=== PATIENT | female | born 1970 ===

== ENCOUNTER 2025-03-07 09:12 | Outpatient (AMB) | payer BC, SELFPAY ==
--- OUTSIDE RECORDS SUMMARY | 2025-03-07 10:16 | XMS_ITS | Patient Health Record ---
Author Organization Total [facility] Address [address] [place] [address] Care Team Providers Care Grinding Wheel Facer Name Role Phone SHELDON SHAVER, LORRIE Primary Care Provider Ailin Wallis Unavailable [phone] Allergies No Known Allergies Results Component Value Reference Range Notes Urinalysis Reviewed date:01/15/2025 12:10:05 PM Interpretation: Performing Lab: Notes/Report: PH 6.0 PROTEIN TRACE GLUCOSE NEG BLOOD NEG Reason For Referral No Information Medications Medication SIG (Take, Route, Frequency, Duration) Notes Start Date End Date Status Estradiol 0.0375 MG/24HR APPLY 1 PATCH O NTO THE SKIN TWICE A WEEK; Duration: 84 Activ e Estradiol 0.0375 MG/24HR 1 patch to skin Transdermal Two times a Week; Duration: 90 days 01/15/2025 Active PreserVision AREDS A ctive Social History Tobacco Use: Social History Observation Description Date Details (start date - stop date) Never Smoker NA - NA Tobacco Use/Smoking Question Answer Notes Are you a nonsmoker Alcohol Screen (Audit-C) Question Answer Notes Did you have a drink contain ing alcohol in the past year? Yes How often did you have a dri nk containing alcohol in the past year? 2 to 4 times a month (2 points) How many drinks did you have on a typical day when you were drinking in the past year? 1 or 2 drinks (0 point) Points 2 Interpretation Negative Sexual History Question Answer Notes Had sex in the past 12 months (vaginal, oral, or anal)? Yes with Men only Prevention strategies discussed: Other Problems Problem Type SNOMED Code ICD Code Onset Dates Problem Status W/U Status Risk Notes Problem Cardiac arrhythmia (099066816) Cardiac arrhythmia, unspecified (I49.9) Active confirmed Problem Unspecified menopausal and perimenopausal disorder (N95.9) Active confirmed Problem Menopause (408241215) Menopausal and female climacteric states (N95.1) Active confirmed Problem Candidal vulvovaginitis (70339659) Candidiasis of vulva and vagina (112.1) Active confirmed Other Problem Urinary tract infectious disease (disorder) (81960336) Urinary tract infection, site not specified (599.0) Active confirmed Diag Problem Gynecological examination normal (151518544595278) Routine gynecological examination (V72.31) Active confirmed Major Vital Signs Temperature 98.2 degrees Fahrenheit 01/15/2025 Blood pressure diastolic 78 mm Hg 01/15/2025 Height 61.5 in 01/15/2025 Blood pressure systolic 124 mm Hg 01/15/2025 Weight 149 lbs 01/15/2025 BMI 27.69 kg/m2 01/15/2025 Encounters Encounter Location Date Provider Diagnosis [facility] [address] [address] 01/15/2025 Ailin Stone Encounter for gynecological examination (general) (routine) without abnormal findings Z01.419 ; Encounter for screening mammogram for malignant neoplasm of breast Z12.31 ; Hormone replacement therapy Z79.890 and Dense breasts, unspecified R92.30 [facility] [place] [address] [employer] [address] [address] 03/21/2024 Ailin Stone Assessments Encounter Date Diagnosis (ICD Code) Assessment Notes Treatment Notes Treatment Clinical Notes Section Notes 01/15/2025 Encounter for gynecological examination (general) (routine) without abnormal findings (ICD-10 - Z01.419) NO MORE PAP TESTS. 01/15/2025 Encounter for screening mammogram for malignant neoplasm of breast (ICD-10 - Z12.31) REGULAR MAMMOGRAMS AND SBE'S WERE RECOMMENDED. 01/15/2025 Hormone replacement therapy (ICD-10 - Z79.890) DISCUSSED BENEFITS AND RISKS OF ERT. SHE HAS NO CONTRAINDICATIONS AND ACCEPTS RISKS. RX FOR ESTRADIOL PATCH 0.0375 MG WILL BE SENT. 01/15/2025 Dense breasts, unspecified (ICD-10 - R92.30) DISCUSSED DENSE BREASTS ON MAMMOGRAM AND ITS IMPLICATIONS. 3D MAMMOGRAMS WERE RECOMMENDED. Plan Of Treatment Pending Test Test Name Order Date MAMMOGRAM, SCREENING 05/12/2015 Urinalysis 07/07/2020 Urinalysis 07/30/2021 MM Digital Mammo Screening 07/30/2021 MM Digital Mammo Screening 11/11/2022 MM Digital Mammo Screening 11/17/2023 MM Digital Mammo Screening 01/15/2025 Next Appt Details Provider Name:Ailin Lazcano edi, 01/27/2026 08:20:00 AM, [address], [address], [place], [address], Insurance Providers Payer Name Payer Address Payer Phone Subscriber Number Group Number Insured Name Patient Relationship to Insured Coverage Start Date Coverage End Date [employer] [address] [place] [address] [id number] NEEL KOWALSKI Self - patient is the insured Medical (General) History Medical History History ICD Code Inconclusive mammogram R92.2 Leiomyoma of uterus, unspecified D25.9 Other fatigue R53.83 Unspecified menopausal and perimenopausa l disorder N95.9 Mammographic heterogeneous density, bila teral breasts R92.333 Surgical History Surgery Date(Month/Year) Right Kidney Donation 2008 Biopsy on Tounge 2014 [place] Teeth Colonoscopy 2011 Hysterectomy 2017 Hospitalization History Reason Date(Month/Year) See Surgical Hx
== END 2025-03-07 09:25 | disposition home or self-care (01) ==
LOC: HO.HMGAL 09:12
PROVIDERS: PCP Internal Medicine; Visit Provider Registered Nurse Emergency
DX: J30.89 Other allergic rhinitis (principal)
CPT/HCPCS: 95117; 95165

== ENCOUNTER 2025-04-03 15:11 | Outpatient (AMB) | payer BC, SELFPAY ==
--- OUTSIDE RECORDS SUMMARY | 2024-11-23 11:00 | XMS_ITS ---
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 :1970 A ge:54 Y S ex:Female Date:11/23/2024 Address:[address] [place], [place] [phone] Pcp:LORRIE CHUNG MD Subjective: * Chief Complaints: * 1 . 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 * Medical History: Objective: * Vitals: Assessment: Plan: * Treatment: * Images: Billing Information: * Visit Code: * Procedure Codes: * Electronic signature of Luis Antonio Stone MD on 04/03/2025 at 06:42 PM EDT Sign off status: Pending * Appointment Provider: Miguelina Stone M.D. Date: 0 11/23/2024 Generated for Merari peters/Kennedy/Ike on: 0 04/03/2025 06:42 PM EDT
--- OUTSIDE RECORDS SUMMARY | 2025-04-03 18:43 | XMS_ITS | Patient Health Record ---
Author Organization Total [facility] Address [address] [place] [address] Care Team Providers Care Organic Preparation Analyst Name Role Phone SHELDON SHAVER, LORRIE Primary Care Provider Ailin Wallis Unavailable [phone] Allergies No Known Allergies Results Component Value [...] W/U Status Risk Notes Problem Cardiac arrhythmia (226362556) Cardiac arrhythmia, unspecified (I49.9) Active confirmed Problem Unspecified menopausal and perimenopausal disorder (N95.9) Active confirmed Problem Menopause (258135062) Menopausal and female climacteric states (N95.1) Active confirmed Problem Candidal vulvovaginitis (73427445) Candidiasis of vulva and vagina (112.1) Active confirmed Other Problem Urinary tract infectious disease (disorder) (21635186) Urinary tract infection, site not specified (599.0) Active confirmed Diag Problem Gynecological examination normal (380140253837008) Routine gynecological examination (V72.31) Active confirmed Major Vital Signs Temperature 98.2 degrees Fahrenheit 01/15/2025 Blood pressure diastolic 78 mm Hg 01/15/2025 Height 61.5 in 01/15/2025 Blood pressure systolic 124 mm Hg 01/15/2025 Weight 149 lbs 01/15/2025 BMI 27.69 kg/m2 01/15/2025 Encounters Encounter Location Date Provider Diagnosis [address] [place] [address] 01/15/2025 Ailin Stone Encounter for gynecological examination (general) (routine) without abnormal findings Z01.419 ; Encounter for screening mammogram for malignant neoplasm of breast Z12.31 ; Hormone replacement therapy Z79.890 and Dense breasts, unspecified R92.30 Assessments Encounter Date Diagnosis (ICD Code) Assessment [...] Screening 01/15/2025 Next Appt Details Provider Name:Ailin daley, 01/27/2026 08:20:00 AM, [address], [address], [place], [address], Insurance Providers Payer Name Payer Address Payer Phone Subscriber Number Group Number Insured Name Patient Relationship to Insured Coverage Start Date Coverage End Date [employer] [address] [place] [address] [phone] [id number] NEEL KOWALSKI Self - patient is the insured Medical (General) History Medical History History ICD Code Inconclusive mammogram R92.2 Leiomyoma of uterus, unspecified D25.9 Other fatigue R53.83 Unspecified menopausal and perimenopausa l disorder N95.9 Mammographic heterogeneous density, bila teral breasts R92.333 Surgical History Surgery Date(Month/Year) Right Kidney Donation 2009 Biopsy on Tounge 2014 [place] Teeth Colonoscopy 2011 Hysterectomy 2017 Hospitalization History Reason Date(Month/Year) See Surgical Hx
== END 2025-04-03 15:34 | disposition home or self-care (01) ==
LOC: HO.HMGAL 15:11
PROVIDERS: PCP Internal Medicine; Visit Provider Registered Nurse Emergency
DX: J30.89 Other allergic rhinitis (principal)
CPT/HCPCS: 95117; 95165

== ENCOUNTER 2025-05-06 15:16 | Outpatient (AMB) | payer BC, SELFPAY ==
--- OUTSIDE RECORDS SUMMARY | 2024-11-23 11:00 | XMS_ITS ---
Author Organization Total [employer] 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 :1970 A ge:54 Y S ex:Female Date:11/23/2024 Address:[address] [place], [place] [id number] Pcp:LORRIE CHUNG MD Subjective: * Chief Complaints: * 1 . 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 * Medical History: Objective: * Vitals: Assessment: Plan: * Treatment: * Images: Billing Information: * Visit Code: * Procedure Codes: * Electronic signature of Luis Antonio Stone MD on 05/06/2025 at 07:29 PM EDT Sign off status: Pending * Appointment Provider: Miguelina Stone M.D. Date: 0 11/23/2024 Generated for Merari peters/Kennedy/Ike on: 1 07:29 PM EDT
--- OUTSIDE RECORDS SUMMARY | 2025-05-06 19:29 | XMS_ITS | Patient Health Record ---
Author Organization Total [facility] Address [address] [place] [address] Care Team Providers Care Automated Cutting Machine Operator Name Role Phone SHELDON SHAVER, LORRIE Primary Care Provider Ailin Wallis Unavailable [phone] Allergies No Known Allergies Results Component Value [...] W/U Status Risk Notes Problem Cardiac arrhythmia (076072292) Cardiac arrhythmia, unspecified (I49.9) Active confirmed Problem Unspecified menopausal and perimenopausal disorder (N95.9) Active confirmed Problem Menopause (846172559) Menopausal and female climacteric states (N95.1) Active confirmed Problem Candidal vulvovaginitis (23274310) Candidiasis of vulva and vagina (112.1) Active confirmed Other Problem Urinary tract infectious disease (disorder) (98102707) Urinary tract infection, site not specified (599.0) Active confirmed Diag Problem Gynecological examination normal (371099097505102) Routine gynecological examination (V72.31) Active confirmed Major Vital Signs Temperature 98.2 degrees Fahrenheit 01/15/2025 Blood pressure diastolic 78 mm Hg 01/15/2025 Height 61.5 in 01/15/2025 Blood pressure systolic 124 mm Hg 01/15/2025 Weight 149 lbs 01/15/2025 BMI 27.69 kg/m2 01/15/2025 Encounters Encounter Location Date Provider Diagnosis [address] [place] [address] 01/15/2025 Ailin Stone Encounter for gynecological examination [...] Provider Name:Ailin daley, 01/27/2026 08:20:00 AM, [address], [address], [place], [address], Insurance Providers Payer Name Payer Address Payer Phone Subscriber Number Group Number Insured Name Patient Relationship to Insured Coverage Start Date Coverage End Date [employer] [place] [address] [place] [address] [phone] [id number] NEEL KOWALSKI Self - patient is the insured Medical (General) History Medical History History ICD Code Inconclusive mammogram R92.2 Leiomyoma of uterus, unspecified D25.9 Other fatigue R53.83 Unspecified menopausal and perimenopausa l disorder N95.9 Mammographic heterogeneous density, bila teral breasts R92.333 Surgical History Surgery Date(Month/Year) Right Kidney Donation 2009 Biopsy on Tounge 2014 [place] Teeth Colonoscopy 2011 Hysterectomy 2017 Hospitalization History Reason Date(Month/Year) See Surgical Hx
== END 2025-05-06 15:17 | disposition home or self-care (01) ==
LOC: HO.HMGAL 15:16
PROVIDERS: PCP Internal Medicine; Visit Provider Registered Nurse Emergency
DX: J30.89 Other allergic rhinitis (principal)
CPT/HCPCS: 95117; 95165

== ENCOUNTER 2025-06-26 15:34 | Outpatient (AMB) | payer BC, SELFPAY ==
--- OUTSIDE RECORDS SUMMARY | 2024-11-23 10:00 | XMS_ITS ---
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 :1970 A ge:54 Y S ex:Female Date:11/23/2024 Address:[address] [place], [place] [id number] Pcp:LORRIE CHUNG MD Subjective: * Chief Complaints: * 1 . 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 * Medical History: Objective: * Vitals: Assessment: Plan: * Treatment: * Images: Billing Information: * Visit Code: * Procedure Codes: * Electronic signature of Luis Antonio Stone MD on 06/27/2025 at 12:11 AM EST Sign off status: Pending * Appointment Provider: Miguelina Stone M.D. Date: 0 11/23/2024 Generated for Merari peters/Kennedy/Ike on: 1 08/28/2024 12:11 AM EST
--- OUTSIDE RECORDS SUMMARY | 2025-06-27 00:10 | XMS_ITS | Patient Health Record ---
Author Organization [facility] Address [address] [place] [address] Care Team Providers Care Water Well Driller Name Role Phone SHELDON SHAVER, LORRIE Primary Care Provider Ailin Wallis Unavailable [phone] Allergies No Known Allergies Results Component Value [...] W/U Status Risk Notes Problem Cardiac arrhythmia (195654666) Cardiac arrhythmia, unspecified (I49.9) Active confirmed Problem Unspecified menopausal and perimenopausal disorder (N95.9) Active confirmed Problem Menopause (775408845) Menopausal and female climacteric states (N95.1) Active confirmed Problem Candidal vulvovaginitis (32350868) Candidiasis of vulva and vagina (112.1) Active confirmed Other Problem Urinary tract infectious disease (disorder) (64945451) Urinary tract infection, site not specified (599.0) Active confirmed Diag Problem Gynecological examination normal (750821762064809) Routine gynecological examination (V72.31) Active confirmed Major Vital Signs Temperature 98.2 degrees Fahrenheit 01/15/2025 Blood pressure diastolic 78 mm Hg 01/15/2025 Height 61.5 in 01/15/2025 Blood pressure systolic 124 mm Hg 01/15/2025 Weight 149 lbs 01/15/2025 BMI 27.69 kg/m2 01/15/2025 Encounters Encounter Location Date Provider Diagnosis [address] [place] [address] 01/15/2025 Ailin Stone Encounter for gynecological examination [...] 08:20:00 AM, [address], [address], [place], [address], Insurance Providers Payer Name Payer Address Payer Phone Subscriber Number Group Number Insured Name Patient Relationship to Insured Coverage Start Date Coverage End Date [employer] [address] [place] [address] [id number] NEEL KOWALSKI Self - patient is the insured Medical (General) History Medical History History ICD Code Inconclusive mammogram R92.2 Leiomyoma of uterus, unspecified D25.9 Other fatigue R53.83 Unspecified menopausal and perimenopausa l disorder N95.9 Mammographic heterogeneous density, bila teral breasts R92.333 Surgical History Surgery Date(Month/Year) Right Kidney Donation 2009 Biopsy on Tounge 2014 [place] Teeth Colonoscopy 2011 Hysterectomy 2017 Hospitalization History Reason Date(Month/Year) See Surgical Hx
== END 2025-06-26 15:35 | disposition home or self-care (01) ==
LOC: HO.HMGAL 15:34
PROVIDERS: PCP Internal Medicine; Visit Provider Registered Nurse Emergency
DX: J30.89 Other allergic rhinitis (principal)
CPT/HCPCS: 95117; 95165